=== PATIENT | male | born 1940 | race Caucasian/White ===

== ENCOUNTER 2017-12-26 13:23 | Emergency (ER) | payer OTHER ==
[~2017-12-26] VITALS: Ht 182.9 cm; Wt 91.6 kg
[2017-12-26 13:38] VITALS: Ht 182.9 cm; Wt 91.6 kg
[2017-12-26 16:44] VITALS: BP 155/90
== END 2017-12-26 16:44 | disposition home or self-care (01) ==
LOC: ED 13:23
DX: S80.812A Abrasion, left lower leg, initial encounter (principal); W01.0XXA Fall on same level from slipping, tripping and stumbling without subsequent striking against object, initial encounter; Y93.E1 Activity, personal bathing and showering; Y92.002 Bathroom of unspecified non-institutional (private) residence as the place of occurrence of the external cause; Y99.8 Other external cause status
CPT/HCPCS: 90715; Q0092